=== PATIENT | male | born 1985 | race Caucasian/White ===

== ENCOUNTER 2024-12-21 20:20 | Inpatient (IN) | payer OTHER ==
[2024-12-21 20:40] VITALS: BMI 28.8
[2024-12-21] MEDS ORDERED: BENZONATATE 200 MG CAPSULE PO PRN (21:00)
[2024-12-21] MEDS ORDERED: IBUPROFEN 400 MG TABLET (FP) PO PRN (21:00)
[2024-12-21] MEDS ORDERED: LOPERAMIDE HCL 2 MG CAPSULE PO PRN (21:00)
[2024-12-21] MEDS ORDERED: NALOXONE (NARCAN) HCL 4 MG/0.1 ML SPRAY NS PRN (21:00)
[2024-12-21] MEDS ORDERED: guaiFENesin 600 MG TABLET.ER (FP) PO PRN (21:00)
[2024-12-21] MEDS ORDERED: IBUPROFEN 600 MG TABLET (FP) PO PRN (21:00)
[2024-12-21] MEDS ORDERED: P-EPHED 60MG/TRIPROLIDI 2.5MG TABLET PO PRN (21:00)
[2024-12-21] MEDS ORDERED: POLYETHYLENE GLYCOL (HEALTHYLAX) 3350 17 GM PACKET PO PRN (21:00)
[2024-12-21] MEDS ORDERED: MAGNESIUM HYDROX 2400MG/30ML ORAL SUSPENSION 30 ML CUP PO PRN (21:00)
[2024-12-21] MEDS ORDERED: BISMUTH SUBSALICYLATE 524 MG/30 ML PO PRN (21:00)
[2024-12-21] MEDS ORDERED: DICYCLOMINE HCL 10 MG CAPSULE PO PRN (21:00)
[2024-12-21] MEDS ORDERED: BENZOCAINE/MENTHOL (CHLORASEPTIC ) LOZENGE MM PRN (21:00)
[2024-12-21] MEDS ORDERED: ONDANSETRON *ODT* 4 MG TABLET ONE (21:36)
[2024-12-21] MEDS: ONDANSETRON *ODT* 4 MG TABLET SL PRN (21:38)
[2024-12-21] MEDS: MELATONIN 5 MG TABLETS PO SCH (21:59)
[2024-12-21] MEDS: THIAMINE 100 MG TABLET PO SCH (21:59)
[2024-12-21] MEDS: levETIRAcetam 500 MG TABLET (FP) PO SCH (21:59)
[2024-12-21] MEDS: METOPROLOL TARTRATE 25 MG TABLET (FP) PO ONE ×2 (22:02→22:47)
[2024-12-21] MEDS: chlordiazePOXIDE HCL 25 MG CAPSULE PO SCH (22:03)
[2024-12-21] MEDS: chlordiazePOXIDE HCL 25 MG CAPSULE PO ONE ×2 (22:08→22:47)
[2024-12-22] MEDS: METHOCARBAMOL 500 MG TABLET PO PRN (03:17)
[2024-12-22] MEDS: ACETAMINOPHEN 325 MG TABLET (FP) PO PRN (03:18)
[2024-12-22] MEDS: MAG HYDROX/AL HYDROX/SIMETH 30 ML UNIT-DOSE CUP PO PRN (08:44)
[2024-12-22] MEDS: TRIMETHOBENZAMIDE HCL 200MG/2ML INJ IM ONE (09:39)
[2024-12-22] MEDS: hydrOXYzine PAMOATE 25 MG CAPSULE (FP) PO PRN (09:42)
[2024-12-22] MEDS: PRENATAL VITAMINS W/ FOLIC ACID TABLET (FP) PO SCH (09:42)
[2024-12-22 11:48] LABS: HEMATOCRIT 37.4 % (35.4-49); HEMOGLOBIN 12.2 GM/dL (11.7-16.9); MCH 27.6 pg (25.7-33.7); MCHC 32.6 g/dl (32.0-35.9); MEAN CELL VOLUME 84.7 fl (80-96); MEAN PLT VOLUME 8.1 fl (7.5-11.1); PLATELET COUNT 195 10^3/uL (134-434); RBC 4.41 M/mm3 (4.00-5.60); RDW 15.7 % (11.9-15.9); WHITE BLOOD COUNT 4.1 K/mm3 (4.0-10.0)
[2024-12-22 11:56] LABS: POTASSIUM 3.5 mmol/L (3.5-5.1)
[2024-12-22 12:01] LABS: ALBUMIN 3.2 g/dl (3.4-5.0); BLOOD UREA NITROGEN 7.1 mg/dL (7-18); CALCIUM 8.2 mg/dL (8.5-10.1)
[2024-12-22 12:04] LABS: BILIRUBIN,TOTAL 0.4 mg/dL (0.2-1); TOT PROT 6.1 g/dl (6.4-8.2)
[2024-12-22 12:05] LABS: CREATININE 0.8 mg/dL (0.55-1.3)
[2024-12-22] MEDS: chlordiazePOXIDE HCL 25 MG CAPSULE PO PRN (13:19)
[2024-12-22] MEDS: NICOTINE POLACRILEX 2 MG GUM BUC PRN (15:36)
[2024-12-22] MEDS: NICOTINE POLACRILEX 2 MG LOZENGE BC PRN (17:13)
[2024-12-22] MEDS: QUEtiapine FUMARATE 50 MG TABLET PO PRN (22:10)
[2024-12-23] MEDS: chlordiazePOXIDE HCL 25 MG CAPSULE PO SCH (05:37)
[2024-12-24] MEDS ORDERED: chlordiazePOXIDE HCL 10 MG CAPSULE PO PRN
[2024-12-24] MEDS: chlordiazePOXIDE HCL 10 MG CAPSULE PO SCH (05:37)
[2024-12-25] MEDS: chlordiazePOXIDE HCL 10 MG CAPSULE PO SCH (05:21)
[2024-12-26] MEDS: chlordiazePOXIDE HCL 10 MG CAPSULE PO ONE (05:57)
[2024-12-26 06:18] VITALS: TEMP 97.6
[2024-12-26 08:49] VITALS: BP 126/97; PULSE 90; RESP 18
== END 2024-12-26 09:44 | disposition home or self-care (01) | DRG 775 ==
LOC: YASAS 20:20 → Y3N 21:35
PROVIDERS: ADMIT Allergy & Immunology; ATTEND Allergy & Immunology
PROC: HZ2ZZZZ Detoxification Services for Substance Abuse Treatment (ICD-10-PCS; principal; 2024-12-21)
DX: F10.230 Alcohol dependence with withdrawal, uncomplicated (principal); F17.290 Nicotine dependence, other tobacco product, uncomplicated; F32.A Depression, unspecified; G40.89 Other seizures
CPT/HCPCS: 36415; 80053; 80305; 80307; 85027; 86780; 93005; 93010; Q0162